=== PATIENT | female | born 1970 | race Caucasian/White ===

== ENCOUNTER 2016-11-03 14:38 | Emergency (ER) | payer BC ==
[~2016-11-03] VITALS: Ht 165.1 cm; Wt 61.2 kg
[~2016-11-03 14:38] MED LIST: AYGESTIN 5 MG TA5 M1 PO; CLONAZEPAM 1 MG1 M1 PO; DOXYCYCLINE 10100 MG PO; HYDROCODON-ACE1 EACH PO; HYDROCODONE-APA1 TA1 PO; LEVAQUIN 250 M250 MG PO; RELAFEN500 MG PO; RELAFEN750 MG PO; SERTRALINE HCL50 MG PO; TRAMADOL 50 MG50 MG PO; WELLBUTRIN SR150 MG PO; XANAX 0.25 MG0.25 MG PO
[2016-11-03] MEDS ORDERED: FLONASE 0.05%50 MCG NASAL (15:23)
[2016-11-03] MEDS ORDERED: RIZATRIPTAN10 MG PO (15:24)
[2016-11-03 16:08] LABS: URINE BILIRUBIN NEGATIVE (Negative); URINE BLOOD NEGATIVE (Negative); URINE COLOR YELLOW; URINE GLUCOSE-RANDOM* NEGATIVE (Negative); URINE KETONES NEGATIVE (Negative); URINE LEUKOCYTES-REFLEX NEGATIVE (Negative); URINE PROTEIN (DIPSTICK) NEGATIVE (Negative); URINE SPECIFIC GRAVITY 1.015 (1.003-1.035)
[2016-11-03 16:25] LABS: ABSOLUTE NEUTROPHILS 5.2 thou/uL (1.4-8.2); BASOPHILS 0.6 % (0.0-2.0); EOSINOPHILS 1.3 % (0.0-3.0); HEMATOCRIT 39.6 % (37.0-47.0); HEMOGLOBIN 13.4 gm/dL (12.0-15.0); MANUAL DIFF NO; MCH 29.5 pg (26.0-34.0); MCHC 33.9 g/dL (28.0-37.0); MCV 87.1 fL (80.0-100.0); PLATELET COUNT 252 thou/uL (150-400); POLYS 73.1 % (36.0-66.0); RBC 4.55 mil/uL (4.20-5.00); WBC 7.1 thou/uL (4.0-11.0)
[2016-11-03 16:34] LABS: CALCIUM 8.8 mg/dL (8.5-10.1); CREATININE 0.9 mg/dL (0.6-1.0); POTASSIUM 4.2 mmol/L (3.5-5.1)
[2016-11-03 16:41] LABS: TOTAL BILIRUBIN 0.7 mg/dL (<0.1-1.0); TOTAL PROTEIN 7.4 g/dL (6.4-8.2)
[2016-11-03 19:02] VITALS: BP 118/85
== END 2016-11-03 18:49 | disposition home or self-care (01) ==
LOC: ER 14:38
PROVIDERS: Emergency Medicine
DX: N83.291 Other ovarian cyst, right side (principal); Z88.8 Allergy status to other drugs, medicaments and biological substances

== ENCOUNTER → 2017-03-12 | Outpatient (CLI) | payer BC ==
[~2017-03-12] MED LIST changes: +FLONASE 0.05%50 MCG NASAL; +RIZATRIPTAN10 MG PO
== END ==
LOC: RAD 15:53
DX: M48.02 Spinal stenosis, cervical region (principal); M47.892 Other spondylosis, cervical region; M25.742 Osteophyte, left hand; M25.741 Osteophyte, right hand

== ENCOUNTER → 2020-03-22 | Outpatient (CLI) | payer BC | LOC: CAT 09:54 | PROVIDERS: ATTEND Nurse Practitioner | DX: N28.1 Cyst of kidney, acquired (principal) ==

== ENCOUNTER → 2020-04-10 | Outpatient (CLI) | payer BC | LOC: ULTRA 11:34 | PROVIDERS: ATTEND Nurse Practitioner | DX: N83.201 Unspecified ovarian cyst, right side (principal) ==